=== PATIENT | female | born 1965 | race Caucasian/White ===

== ENCOUNTER 2025-02-16 16:14 | Inpatient (IN) | payer BC, SELFPAY ==
[2025-02-16] VITALS (15 sets, daily range): BP systolic 103–154; BP diastolic 52–76; BMI 31.1
--- NOTE | 2025-02-16 11:09 | ED.GENMED ---
History of Present Illness
<ALLY Goddard - Last Filed: 02/17/25 15:36>
General
Chief Complaint: Weakness
Source: patient and family
Exam Limitations: none
Time Seen by Provider: 02/16/25 10:14
Nursing documentation reviewed up to this point in time: agreed with
History of Present Illness
History of Present Illness:
Patient is a 59-year-old female with metastatic breast cancer with mets to bone kidney liver spine and brain (followed at [facility] ) presents to the ER for evaluation. Family doctor reports patient switched to new chemo 3 weeks
ago and had 2 doses. Over the last week patient is noted to have increasing weakness worse weakness in her legs and leg pain. Also over the past several days she has had increased confusion. Last night she was very confused and daughter reports
medics came however she did refuse to come to the ER. That time however her sugar was 43. She also started with low-grade fever yesterday between 100.2 and 100.4. Mild cough. Pt is awake alert aware that she was confused. Presently pt is awake
alert oriented x3. When asked patient does report a little bit of burning with urination and blood in her urine however she does have a known stent because of metastasis to her kidney.
Phy Exam
<ALLY Goddard - Last Filed: 02/17/25 15:36>
General Physical Exam
General Presentation: no apparent distress
General age: appears older than age
General Skin: warm and dry
General Habitus: normal
General Mental: alert
General Hydration: dry mucous membranes
Cardiovascular Exam
Cardiovascular Exam: regular rate/rhythm, no murmur and normal peripheral pulses
Pulmonary Exam
Pulmonary Exam: lungs clear and no respiratory distress
Neurological Exam
Neurological Exam: alert and oriented x3
Musculoskeletal Exam
Musculoskeletal Exam: full ROM
Skin Exam
Skin Exam: normal color and warm/dry
Psychiatric Exam
Psychiatric Exam: normal mood/affect
Course
<ALLY Goddard - Last Filed: 02/17/25 15:36>
Orders/Labs/Results
Orders:
Orders
02/16/25 11:03
CMP [Comprehensive Metabolic Panel] Urgent
Complete Blood Count/With Diff Urgent
Magnesium Urgent
Comment: ADD ON
Manual Differential Urgent
02/16/25 11:12
COVID-19 Antigen Urgent
Source: Nasal Swab
Lactic Acid Q4H
Comment: CANCEL 2nd LACTIC ACID IF 1st LACTIC ACID IS LESS THAN 2
Influenza A+B Rapid Molecular Urgent
PEREZ Source: Nasal Swab
Specimen Description:
02/16/25 11:17
Chest/Abd/Pelvis w Contrast CT [CT Chest/abd/pel W Iv Cont] Urgent
Comment:
Reason For Exam: fever hx of cancer /cough
02/16/25 11:19
Blood Culture Q30M
PEREZ Source: Blood/Venous
Specimen Description:
02/16/25 11:20
0.9% Sodium Chloride 1000 ml [Nss] 1,000 ml IV BOLUS
02/16/25 11:28
Urinalysis Reflex To Culture Urgent
Date Specimen was Collected: 02/16/25
Time Specimen was Collected: 11:28
Urine Microscopic Reflex Cult Urgent
Urine Culture Urgent
PEREZ Source: U
Specimen Description:
Date Specimen was Collected: 02/16/25
Time Specimen was Collected: 11:28
02/16/25 11:42
Potassium Chloride [KCl] 40 meq PO NOW STA
02/16/25 11:50
Blood Culture Q30M
PEREZ Source: Blood/Venous
Specimen Description:
02/16/25 11:53
Potassium Chloride [KCl] 40 meq 0.9% Sodium Chloride 250 ml [Nss] 250 ml IV NOW
02/16/25 13:58
Electrocardiogram (*1) Stat
Reason for Study: Other
Other Reason for Exam: chest pain
EKG- Treatment ONCE
02/16/25 14:30
Cefepime HCl [Maxipime] 2,000 mg IV NOW STA
Vancomycin [Vancocin] 2,000 mg 0.9% Sodium Chloride 500 ml [Nss] 500 ml IV NOW
02/16/25 Dinner
1800 calorie (15 carb) Diabetic
At Your Request: Full Participation
02/16/25 15:23
Oxycodone [Roxicodone] 5 mg PO NOW STA
02/16/25 15:44
Lactic Acid Q4H
Comment: CANCEL 2nd LACTIC ACID IF 1st LACTIC ACID IS LESS THAN 2
02/16/25 15:50
Admit/Transfer Patient As Directed
Co-Sign Provider:
Level of Care: Inpatient admission
Assign to:: IMU- Intermediate Care
Physician / Group: chan fuentes
Diagnosis: sepsis unclear poss gallbladder, pancytopenia/neutropenia, breast ca w/mets
Reason for Hospitalization: sepsis unclear poss gallbladder, pancytopenia/neutropenia, breast ca w/mets
Expected length of stay greater than two midnights?: Yes
ELOS- Estimated Length of Stay in days: 5
I certify the patient meets the requirements for IP care: Yes
02/16/25 15:57
PRN Pain Medication Management As Directed
May give lesser potent ordered pain med per pt: Yes
preference::
Protocol:: Medication orders for pain may be administered in a
manner that supports deferring to patient preference
when the pt is:
- Requesting an ordered lesser potent pain medication.
Least to most potent pain medications are defined
as: acetaminophen < NSAID < tramadol < opioids
(morphine, oxycodone, hydromorphone).
- Requesting a lesser dose of the same medication IF
ORDERED.
- Requesting a less intrusive route of administration
if both routes are prescribed by the provider (PO <
IV).
02/16/25 16:10
Code Status As Directed
Resuscitation Status: Full Code
02/16/25 16:13
Add On- LAB Urgent
Tests Added?: mag
02/16/25 16:35
Blood Culture Urgent
PEREZ Source: Blood/Venous
Specimen Description:
Comment: please draw culture from port
02/16/25 17:48
0.9% Sodium Chloride 1000 ml [Nss] 1,000 ml IV 80 mls/hr
Acetaminophen [Tylenol] 650 mg PO Q4HPRN PRN
Bisacodyl [Dulcolax] 10 mg RECTAL [id number] PRN
Docusate W/Senna [Senokot-S] 1 tablet PO BIDPRN PRN
Ondansetron Injectable [Zofran] 4 mg IV Q6HPRN PRN
Polyethylene Glycol Powder [Miralax] 17 grams PO DAILYPRN PRN
Trazodone [Desyrel] 50 mg PO HSPRN PRN sleep
02/16/25 17:48
Activity As Directed
Activity Level: With Assistance
Pneumatic Compression Sleeves As Directed
Type: Knee high
Precautions As Directed
Type of Precautions: Neutropenic
Other
Comment: fall
Vital Signs As Directed
Frequency: Per unit guidelines
Ot Eval And Treat Routine
Pt Eval And Treat Routine
Activity Level: With Assistance
DX Deep Vein Thrombosis Video Routine
02/16/25 18:00
Oxycodone [Roxicodone] 5 mg PO QID
02/16/25 20:00
Levetiracetam [Keppra] 500 mg PO BID
Piperacillin/Tazo 3.375 Gram [Zosyn] 3.375 gram in 50 ml IV Q6H
02/17/25 05:35
Complete Blood Count/With Diff IN AM
Comprehensive Metabolic Panel IN AM
02/17/25 06:00
Levothyroxine [Synthroid] 150 mcg PO DAILY@0600
02/17/25 08:00
Cholecalciferol (Vitamin D3) [VITAMIN D3 (cholecalciferol)] 25 mcg PO DAILY
Fluoxetine HCl [Prozac] 20 mg PO DAILY
Pyridoxine [Vitamin B-6] 100 mg PO DAILY
02/18/25 06:00
Complete Blood Count/With Diff IN AM
Comprehensive Metabolic Panel IN AM
02/19/25 06:00
Complete Blood Count/With Diff IN AM
Comprehensive Metabolic Panel IN AM
02/20/25 06:00
Complete Blood Count/With Diff IN AM
Comprehensive Metabolic Panel IN AM
02/21/25 06:00
Complete Blood Count/With Diff IN AM
Comprehensive Metabolic Panel IN AM
Abnormal Lab Results
02/16/25 02/16/25 02/16/25
11:03 11:12 11:28
WBC 2.0 L* 10^3/uL
(4.8-10.8)
RBC 2.53 L 10^6/uL
(4.20-5.40)
Hgb 7.6 L g/dL
(12.0-16.0)
Hct 22.5 L %
(37.0-47.0)
RDW 16.4 H %
(11.5-14.5)
Plt Count 79 L 10^3/uL
(130-400)
Abs Neuts (Manual) 0.6 L* 10^3/uL
(1.4-6.5)
Segmented Neutrophils 29 L %
(42-75)
Band Neutrophils 4 H %
(0-3)
Monocytes (Manual) 20 H %
(2-9)
Sodium 134 L mmol/L
(135-145)
Potassium 2.8 L mmol/L
(3.5-5.1)
Glucose 161 H mg/dl
(70-99)
Lactic Acid 2.3 H mmol/L
(0.7-2.0)
Total Bilirubin 1.7 H mg/dl
(0.2-1.3)
AST 175 H U/L
(14-36)
ALT 63 H U/L
(0-35)
Alkaline Phosphatase 321 H U/L
(38-126)
Total Protein 5.4 L g/dl
(6.3-8.2)
Albumin 2.9 L g/dl
(3.5-5.0)
Ur Occult Blood Reflex 4+ A
(Negative)
Urine Urobilinogen 2+ A
(Neg - 1+)
Leukocyte Esterase Rfl 1+ A
(Negative)
Urine RBC 80-90 A /HPF
(0-2)
Urine Bacteria (Reflex) Few A
(Negative)
Urine Albumin (Reflex) 2+ A
(Neg - Trace)
02/16/25 11:03
02/16/25 11:03
Vital Signs
Initial and Last Documented VS:
Initial Vital Signs
Pulse Resp BP Pulse Ox
90 21 105/76 96
02/16/25 10:10 02/16/25 10:10 02/16/25 10:10 02/16/25 10:10
Last Documented Vital Signs
Temp Pulse Resp BP Pulse Ox
98.4 F 88 22 107/57 96
02/17/25 12:00 02/17/25 12:00 02/17/25 12:00 02/17/25 12:00 02/17/25 09:28
Saddle Stitcher consulted with Physician
Saddle Stitcher consulted with physician?: Yes (Barenbaum )
<Nissa Mcmahon MD - Last Filed: 02/16/25 16:32>
Orders/Labs/Results
Orders:
Orders
02/16/25 11:03
CMP [Comprehensive Metabolic Panel] Urgent
Complete Blood Count/With Diff Urgent
Magnesium Urgent
Comment: ADD ON
Manual Differential Urgent
02/16/25 11:12
COVID-19 Antigen Urgent
Source: Nasal Swab
Lactic Acid Q4H
Comment: CANCEL 2nd LACTIC ACID IF 1st LACTIC ACID IS LESS THAN 2
Influenza A+B Rapid Molecular Urgent
EPREZ Source: Nasal Swab
Specimen Description:
02/16/25 11:17
Chest/Abd/Pelvis w Contrast CT [CT Chest/abd/pel W Iv Cont] Urgent
Comment:
Reason For Exam: fever hx of cancer /cough
02/16/25 11:19
Blood Culture Q30M
PEREZ Source: Blood/Venous
Specimen Description:
02/16/25 11:20
0.9% Sodium Chloride 1000 ml [Nss] 1,000 ml IV BOLUS
02/16/25 11:28
Urinalysis Reflex To Culture Urgent
Date Specimen was Collected: 02/16/25
Time Specimen was Collected: 11:28
Urine Microscopic Reflex Cult Urgent
Urine Culture Urgent
PEREZ Source: U
Specimen Description:
Date Specimen was Collected: 02/16/25
Time Specimen was Collected: 11:28
02/16/25 11:42
Potassium Chloride [KCl] 40 meq PO NOW STA
02/16/25 11:50
Blood Culture Q30M
PEREZ Source: Blood/Venous
Specimen Description:
02/16/25 11:53
Potassium Chloride [KCl] 40 meq 0.9% Sodium Chloride 250 ml [Nss] 250 ml IV NOW
02/16/25 13:58
Electrocardiogram (*1) Stat
Reason for Study: Other
Other Reason for Exam: chest pain
EKG- Treatment ONCE
02/16/25 14:30
Cefepime HCl [Maxipime] 2,000 mg IV NOW STA
Vancomycin [Vancocin] 2,000 mg 0.9% Sodium Chloride 500 ml [Nss] 500 ml IV NOW
02/16/25 Dinner
1800 calorie (15 carb) Diabetic
At Your Request: Full Participation
02/16/25 15:23
Oxycodone [Roxicodone] 5 mg PO NOW STA
02/16/25 15:44
Lactic Acid Q4H
Comment: CANCEL 2nd LACTIC ACID IF 1st LACTIC ACID IS LESS THAN 2
02/16/25 15:50
Admit/Transfer Patient As Directed
Co-Sign Provider:
Level of Care: Inpatient admission
Assign to:: IMU- Intermediate Care
Physician / Group: chan fuentes
Diagnosis: sepsis unclear poss gallbladder, pancytopenia/neutropenia, breast ca w/mets
Reason for Hospitalization: sepsis unclear poss gallbladder, pancytopenia/neutropenia, breast ca w/mets
Expected length of stay greater than two midnights?: Yes
ELOS- Estimated Length of Stay in days: 5
I certify the patient meets the requirements for IP care: Yes
02/16/25 15:57
PRN Pain Medication Management As Directed
May give lesser potent ordered pain med per pt: Yes
preference::
Protocol:: Medication orders for pain may be administered in a
manner that supports deferring to patient preference
when the pt is:
- Requesting an ordered lesser potent pain medication.
Least to most potent pain medications are defined
as: acetaminophen < NSAID < tramadol < opioids
(morphine, oxycodone, hydromorphone).
- Requesting a lesser dose of the same medication IF
ORDERED.
- Requesting a less intrusive route of administration
if both routes are prescribed by the provider (PO <
IV).
02/16/25 16:10
Code Status As Directed
Resuscitation Status: Full Code
02/16/25 16:13
Add On- LAB Urgent
Tests Added?: mag
02/16/25 16:35
Blood Culture Urgent
PEREZ Source: Blood/Venous
Specimen Description:
Comment: please draw culture from port
02/16/25 17:48
0.9% Sodium Chloride 1000 ml [Nss] 1,000 ml IV 80 mls/hr
Acetaminophen [Tylenol] 650 mg PO Q4HPRN PRN
Bisacodyl [Dulcolax] 10 mg RECTAL [id number] PRN
Docusate W/Senna [Senokot-S] 1 tablet PO BIDPRN PRN
Ondansetron Injectable [Zofran] 4 mg IV Q6HPRN PRN
Polyethylene Glycol Powder [Miralax] 17 grams PO DAILYPRN PRN
Trazodone [Desyrel] 50 mg PO HSPRN PRN sleep
02/16/25 17:48
Activity As Directed
Activity Level: With Assistance
Pneumatic Compression Sleeves As Directed
Type: Knee high
Precautions As Directed
Type of Precautions: Neutropenic
Other
Comment: fall
Vital Signs As Directed
Frequency: Per unit guidelines
Ot Eval And Treat Routine
Pt Eval And Treat Routine
Activity Level: With Assistance
DX Deep Vein Thrombosis Video Routine
02/16/25 18:00
Oxycodone [Roxicodone] 5 mg PO QID
02/16/25 20:00
Levetiracetam [Keppra] 500 mg PO BID
Piperacillin/Tazo 3.375 Gram [Zosyn] 3.375 gram in 50 ml IV Q6H
02/17/25 05:35
Complete Blood Count/With Diff IN AM
Comprehensive Metabolic Panel IN AM
02/17/25 06:00
Levothyroxine [Synthroid] 150 mcg PO DAILY@0600
02/17/25 08:00
Cholecalciferol (Vitamin D3) [VITAMIN D3 (cholecalciferol)] 25 mcg PO DAILY
Fluoxetine HCl [Prozac] 20 mg PO DAILY
Pyridoxine [Vitamin B-6] 100 mg PO DAILY
02/18/25 06:00
Complete Blood Count/With Diff IN AM
Comprehensive Metabolic Panel IN AM
02/19/25 06:00
Complete Blood Count/With Diff IN AM
Comprehensive Metabolic Panel IN AM
02/20/25 06:00
Complete Blood Count/With Diff IN AM
Comprehensive Metabolic Panel IN AM
02/21/25 06:00
Complete Blood Count/With Diff IN AM
Comprehensive Metabolic Panel IN AM
Abnormal Lab Results
02/16/25 02/16/25 02/16/25
11:03 11:12 11:28
WBC 2.0 L* 10^3/uL
(4.8-10.8)
RBC 2.53 L 10^6/uL
(4.20-5.40)
Hgb 7.6 L g/dL
(12.0-16.0)
Hct 22.5 L %
(37.0-47.0)
RDW 16.4 H %
(11.5-14.5)
Plt Count 79 L 10^3/uL
(130-400)
Abs Neuts (Manual) 0.6 L* 10^3/uL
(1.4-6.5)
Segmented Neutrophils 29 L %
(42-75)
Band Neutrophils 4 H %
(0-3)
Monocytes (Manual) 20 H %
(2-9)
Sodium 134 L mmol/L
(135-145)
Potassium 2.8 L mmol/L
(3.5-5.1)
Glucose 161 H mg/dl
(70-99)
Lactic Acid 2.3 H mmol/L
(0.7-2.0)
Total Bilirubin 1.7 H mg/dl
(0.2-1.3)
AST 175 H U/L
(14-36)
ALT 63 H U/L
(0-35)
Alkaline Phosphatase 321 H U/L
(38-126)
Total Protein 5.4 L g/dl
(6.3-8.2)
Albumin 2.9 L g/dl
(3.5-5.0)
Ur Occult Blood Reflex 4+ A
(Negative)
Urine Urobilinogen 2+ A
(Neg - 1+)
Leukocyte Esterase Rfl 1+ A
(Negative)
Urine RBC 80-90 A /HPF
(0-2)
Urine Bacteria (Reflex) Few A
(Negative)
Urine Albumin (Reflex) 2+ A
(Neg - Trace)
02/16/25 11:03
02/16/25 11:03
Vital Signs
Initial and Last Documented VS:
Initial Vital Signs
Pulse Resp BP Pulse Ox
90 21 105/76 96
02/16/25 10:10 02/16/25 10:10 02/16/25 10:10 02/16/25 10:10
Last Documented Vital Signs
Temp Pulse Resp BP Pulse Ox
98.4 F 88 22 107/57 96
02/17/25 12:00 02/17/25 12:00 02/17/25 12:00 02/17/25 12:00 02/17/25 09:28
<ALLY Goddard - Last Filed: 02/17/25 15:36>
MDM/Problems Addressed
Differential Diagnosis Includes:
Not limited to neutropenic fever, pneumonia, UTI, dehydration electrolyte abnormality
MDM/Problems Addressed:
As documented patient is a 59-year-old female with metastatic breast cancer followed at [facility] presents for increasing confusion weakness/leg weakness. She presents awake alert oriented here. She also was noted to have a low-grade fever by family
yesterday. Patient is afebrile here with pancytopenia. UA large blood known stent in place ( left ureter ) right no acute findings on CAT scan. With reports of low-grade fever pancytopenia absolute neutrophils 600 and will cover with vancomycin
/cefipime.
Chronic conditions affecting care:
Metastatic breast cancer on chemotherapy
<ALLY Goddard - Last Filed: 02/17/25 15:36>
*Radiology
Radiology exam reviewed: radiology read reviewed
*Pulse Oximetry
SaO2: 97
Oxygen Mode of Delivery: Room air
Patient hypoxic: no
*Critical Care Note
Total Time (30-74mins, 75-104mins- exclusive of procedures): Not Applicable
ED Attending Note
<ALLY Goddard - Last Filed: 02/17/25 15:36>
-
Portions of this chart may have been created with voice recognition software.� Occasional wrong word or��sound alike� substitutions may have occurred due to the inherent limitations of voice recognition software.
<Nissa Mcmahon MD - Last Filed: 02/16/25 16:32>
ED Attending Note
Patient seen and examined by attending physician: Yes
I performed the substantive portion of visit, reviewed & personally made and approve the management plan that is documented in note by myself or DONTRELL.: Yes
ED Attending Note:
Patient appears nontoxic. Heart sounds regular. Lungs are clear. Given patient reports fever yesterday and is neutropenic, she will be admitted for IV fluids and to watch her cultures.
Discharge Plan
Departure
Patient Disposition: Admit
Date of Disposition: 02/16/25
Time of Disposition: 14:36
Admit to: Med/Surg
Admit to doctor: hospitalist
Presentation/result/management discussed w/ accepting MD/DO: Hospitalist
Patient with high blood pressure during this ER visit?: Yes
Condition: Fair
Covid-19: Not Applicable
Discharge Problem:
Weakness, Fever and neutropenia, Acute hypokalemia
Interventions
Interventions:
*Risk Screen - Suicide Last Done: 02/16/25 18:06
*General Assessment Last Done: 02/16/25 10:19
*Neglect/Abuse Screening Last Done: 02/16/25 10:19
*ED- Fall Risk Assessment Last Done: 02/16/25 10:19
*ED COVID-19 Vaccine History Last Done: 02/16/25 10:19
*Nursing Disposition Last Done: 02/16/25 17:40
ED- Cardiac Assessment Last Done: 02/16/25 10:20
ED- Neurological Assessment Last Done: 02/16/25 10:20
ED- Pulmonary Assessment Last Done: 02/16/25 10:20
ED Swallowing Screen Last Done: 02/16/25 15:15
Discharge Date and Time
Discharge Date/Time: 02/16/25 17:40
[2025-02-16 11:23] LABS: ALT (SGPT) 63 U/L (0-35); AST (SGOT) 175 U/L (14-36); Albumin 2.9 g/dl (3.5-5.0); Alkaline Phosphatase 321 U/L (38-126); Blood Urea Nitrogen 14 mg/dl (7-17); Calcium 8.9 mg/dl (8.4-10.2); Carbon Dioxide 30 mmol/L (22-30); Chloride 102 mmol/L (98-107); Estimated Creatinine Clearance 89 ml/min; Glucose 161 mg/dl (70-99); Potassium 2.8 mmol/L (3.5-5.1); Sodium 134 mmol/L (135-145); Total Protein 5.4 g/dl (6.3-8.2); eGFR > 60.00
[2025-02-16 11:35] LABS: COVID-19 Antigen Negative (Negative)
[2025-02-16] MEDS: NSS 1000 IV ×2 (11:35→18:16)
[2025-02-16 11:36] LABS: Hematocrit 22.5 % (37.0-47.0); Hemoglobin 7.6 g/dL (12.0-16.0); Mean Corp Hgb Conc. 33.8 g/dL (33.0-37.0); Mean Corpuscular Volume 88.9 fL (81.0-99.0); Platelet Count 79 10^3/uL (130-400); Red Cell Dist. Width 16.4 % (11.5-14.5)
[2025-02-16 11:43] LABS: Urine Character Slightly Cloudy (Clear)
[2025-02-16] MEDS: KCL 40 MEQ PO (11:56)
[2025-02-16] MEDS: KCL 270 MEQ IV (12:09)
--- NOTE | 2025-02-16 12:11 | EDRN ---
IV KCL @ 60 ml/hr to avoid vein irritation
[2025-02-16 12:21] LABS: Normal RBC Morphology No; Platelets Checked Yes
[2025-02-16 12:22] LABS: Anisocytosis 1+; Polychromasia 1+
[2025-02-16 12:23] LABS: Acanthocytes FEW; Ovalocytes 1+; Schistocytes FEW
[2025-02-16 12:23] LABS: Urine Red Blood Cell 80-90 /HPF (0-2)
[2025-02-16 12:24] LABS: Total Cells Counted 100
[2025-02-16 12:26] LABS: Absolute Neutrophils -Man Diff 0.6 10^3/uL (1.4-6.5)
--- NOTE | 2025-02-16 15:01 | HPS.HSE ---
Family Physician
-
Family Physician: Jo Olvera
Chief Complaint
-
Increased weakness to legs, fever, confusion
History of Present Illness
59-year-old female who states over the past week has had increased weakness worse in legs along with leg pains and increased confusion. According to her daughter she was very confused last night medics were called she did refuse to come to the ER
however her sugar was 43 at that time. She also started with low-grade fever 100.2�100.4 yesterday and mild cough. She reports slight dysuria with urination however has ureteral stent due to known mets to her kidney that was placed in December. She
follows at [facility] oncology for metastatic breast cancer with mets to bone pelvis, spine then liver 2022 then brain 06/10/2024 then left kidney December 2024. Patient initially was diagnosed with invasive ductal carcinoma of the
right breast 10/03/2020 she reports she was diagnosed with another type of breast cancer and had lumpectomy on the left side she is unsure what type. She had a nosebleed 5 days ago was treated at [facility] ER that self resolved. She reports
bilateral mild abdominal pain not specific to right upper quadrant. She started new chemotherapy 3 weeks ago and has had 2 doses with last infusion of Rubilin on 02/09/2025. Other past medical history includes hypertension, DM 2, hypothyroidism,
brain mets with seizures
Medical History
Past Medical History
Past Medical History: Reports Other
Additional Past Medical History:
metastatic breast cancer with mets to bone pelvis, spine then liver 2022 then brain 06/10/2024 then left kidney December 2024.
invasive ductal carcinoma of the right breast 10/03/2020 she reports she was diagnosed with another type of breast cancer and had lumpectomy on the left side she is unsure what type.
hypertension
DM 2
hypothyroidism
brain mets with seizures
Past Surgical History: Reports Other
Additional Past Surgical History:
Left lumpectomy
Port right upper chest wall
Social History
Tobacco: Non-smoker
Alcohol: None
Drug: None
Living: With Family
Employment: Disabled
Family History
Family History: Not pertinent
Allergies / Home Medications
Allergies reflects when Allergies were last updated in [employer].
Home Medications with original date entered in [employer]
Allergy/Medication List:
Allergies
Allergy/AdvReac Type Severity Reaction Status Date / Time
No Known Allergies Allergy Unverified 02/16/25 10:17
Home Medications
ascorbic acid (vitamin C) 500 mg chewable tablet (Vitamin C) 500 mg PO DAILY 02/16/25
cholecalciferol (vitamin D3) 25 mcg (1,000 unit) tablet (Vitamin D3) 25 mcg PO DAILY 02/16/25
fluoxetine 20 mg capsule (Prozac) 20 mg PO DAILY 02/16/25
hydrochlorothiazide 12.5 mg tablet 12.5 mg PO DAILY 02/16/25
levetiracetam 500 mg tablet 500 mg PO BID 02/16/25
levothyroxine 150 mcg tablet (Synthroid) 150 mcg PO DAILY 02/16/25
oxycodone 5 mg tablet 5 mg PO QID 02/16/25
pyridoxine (vitamin B6) 100 mg tablet 100 mg PO DAILY 02/16/25
trazodone 50 mg tablet 50 mg PO HSPRN PRN sleep 02/16/25
Review of Systems
-
History Source: Patient and Family (Daughter and family at bedside)
A 12 point ROS was completed and negative except as noted: Yes
Constitutional: Reports Fever and Other (Confusion)
EENT: Denies Sore Throat or Runny Nose
Respiratory: Denies Cough or Trouble Breathing
Cardiac: Denies Chest Pain, Diaphoresis, Palpitations or Syncope
Abdomen/GI: Reports Abdominal Pain (Nonspecific left and right side abdomen); Denies Nausea, Vomiting, Diarrhea, Constipated, Bloody Stools or Black Stools
: Reports Dysuria (But has current ureteral stent due to metastatic CA to ureter); Denies Flank Pain, Incontinence or Difficulty Voiding
Musculoskeletal: Denies Joint Pain or Edema
Skin: Denies Itching or Rash
Neurological: Reports Weakness (Bilateral lower legs); Denies Dizzy or Headache
Endocrine: Reports No Symptoms
Hematologic/Lymphatic: Reports Bleeding (Recent epistaxis 5 days ago)
Psych: Reports Calm
Physical Exam
Vital Signs
Vital Signs
Temp Pulse Resp BP Pulse Ox
98.6 F 92 19 129/55 97
02/16/25 10:14 02/16/25 13:34 02/16/25 13:34 02/16/25 13:34 02/16/25 13:32
Physical Exam
General: Comfortable, Conversant, Pain and Chills; No Fever
HEENT: NormoCephalic, Moist mucous membranes, PERRLA, Filer Conjunctivae, No Ptosis and Other (Pale conjunctiva)
Respiratory: Clear; No Wheezes, Rales or Rhonchi
Cardiac: S1/S2 and Regular Rhythm; No Murmur, Rub, Gallop or Peripheral Edema
Breast: Deferred by me
GI: Soft, Non Distended, Normal Bowel Sounds, Tender (Nonspecific left and right side) and No Hepatosplenomegaly
Rectal: Deferred by Provider
Genito-urinary: Deferred by me
Musculoskeletal: No Clubbing, No Cyanosis and No Edema
Skin: Warm, Dry and IV/Catheter Site (Left upper chest wall port site intact no surrounding erythema or rash); No Rash or Jaundice
Neuro: AO x 3, No Motor Deficits, Nonfocal/grossly intact, Cranial Nerves Intact and No Sensory Deficits; No Slurred Speech, Facial Droop, Tremors or Sedated
Psych: Calm
Laboratory Results
-
02/16/25 11:03
02/16/25 11:03
Laboratory Results
Lactic Acid 2.3 mmol/L (0.7-2.0) H 02/16/25 11:12
Total Bilirubin 1.7 mg/dl (0.2-1.3) H 02/16/25 11:03
AST 175 U/L (14-36) H 02/16/25 11:03
ALT 63 U/L (0-35) H 02/16/25 11:03
Alkaline Phosphatase 321 U/L (38-126) H 02/16/25 11:03
Data Reviewed
-
CT Scan: Report Reviewed by me
Lab Data: Labs Reviewed by me
Impression/Plan
-
Impression/plan:
Admit to telemetry
#Sepsis of unclear etiology possible gallbladder given pericholecystic fluid
#Acute pancytopenia/bandemia secondary to chemotherapy for metastatic breast cancer
#Splenomegaly
WBC 2, absolute neuts 0.6, Hgb 7.6, PLT 79
Bands 4%
- Blood cultures x 2, lactic acid 2.3 will follow
- Type and screen, blood consent obtained and scanned to chart
-Transfuse 1 unit PRBC
- IV cefepime, IV vancomycin given in ER will continue IV vancomycin IV Zosyn pending abdominal ultrasound
- IV NSS 1 L given in ER
- Ultrasound abdomen
CT chest abdomen pelvis with IV contrast:
1. No acute findings in the chest.
2. Cholelithiasis with small volume pericholecystic free fluid which is nonspecific and may be secondary to liver disease, however consider dedicated right upper quadrant ultrasound for further evaluation.
3. Numerous hypodense lesions within the liver which are likely metastasis in the setting of known breast cancer.
4. Splenomegaly.
5. Left-sided double-J ureteral stent with persistent mild left-sided hydronephrosis.
6. Extensive lytic and sclerotic appearance of the bones likely secondary to widespread osseous metastatic disease.
#Transaminitis due to metastatic breast CA to liver
T. bili 1.7, AST 175, ALT 63, alk phos 321
- Follow CMP
#Acute hypokalemia
K2.8
KCl 40 mEq p.o., IV K rider 40 mEq
Follow BMP
- Hold HCTZ 12.5 mg daily
#Left-sided double J ureteral stent mild hydro
Urinalysis +1 leukocytes few bacteria
- Follow urine culture
#Metastatic breast cancer with mets to bone pelvis, spine then liver 2022 then Brain 06/10/2024 then left kidney December 2024 on current chemotherapy
#Patient initially was diagnosed with invasive ductal carcinoma of the right breast 10/03/2020
-chemotherapy 3 weeks ago and has had 2 doses with last infusion of Rubilin on 02/09/2025.
- Port left upper chest wall
#Metastatic brain CA with history of seizures Dx May 2024
- Continue Keppra 500 mg p.o. twice daily
#Chronic pain due to metastatic breast cancer on chronic oral opiates
-Continue oxycodone 5 mg 4 times daily with bowel regimen
#Hypothyroidism
-Continue Synthroid 150 mcg p.o. daily
#Depression
-Continue Prozac 20 mg daily
#Insomnia
-Continue trazodone 50 mg at bedtime
DVT prophylaxis
SCDs current plt 79
Full code
[2025-02-16] MEDS: MAXIPIME 2000 MG IV (15:24)
[2025-02-16] MEDS: VANCOCIN 540 MG IV (15:28)
[2025-02-16] MEDS: ROXICODONE 5 MG PO ×2 (15:36→22:18)
--- NOTE | 2025-02-16 16:18 | W.PN.UPDATE ---
Update Note
Progress Note Update
This is an addendum to the H&P written by Ashley Mckinney on 02/16/2025. �Patient seen and examined independently with [employer].
59-year-old female past medical history of metastatic breast cancer follows at [facility] metastasis to spine, liver, brain complicated by seizures,, metastases to left ureter status post stent in December, on chemotherapy started 3 weeks ago presenting for
low-grade fever, confusion nonspecific abdominal discomfort.
Epistaxis 1 week ago did not require packing.
Vital signs normal.
Labs show pancytopenia white cell count of 2, hemoglobin 7.6, platelets of 79. �Sodium of 134, potassium 2.8, lactic acid 2.3. �Transaminitis.
CT chest abdomen pelvis shows no acute findings in the chest. �Cholelithiasis with small volume pericholecystic fluid which may be secondary to liver disease. �Few hypodense lesions within the liver likely metastases. �Splenomegaly. �Left-sided
double-J ureteral stent with mild left-sided hydronephrosis.
Urinalysis unremarkable.
Patient with sepsis unclear source. �Could be related to biliary or gallbladder source. �Does not seem to be urinary in nature. �Could be bacteremia. �Does not seem to be related to the port. �Check blood cultures. �Check blood culture from port as
well. �IV fluids. �Vancomycin/Zosyn. �Check abdominal ultrasound.
Patient with pancytopenia secondary to chemotherapy. �1 unit blood transfusion.
Hypokalemia secondary to HCTZ. �Replete potassium. �Check magnesium.
--- NOTE | 2025-02-16 16:32 | CM ---
Addendum entered by Tash Macdonald 02/16/25 16:38:
First floor half BA, full flight to second floor BR/full BA
Original Note:
CM reviewed chart and met with pt and family bedside in ED. Lives with her , 2 story home, 2 JIE.
Independent in ADLs and personal care, recently obtained walker and wheelchair, using as needed.
No hx VN/SNF.
PCP: Jo Olvera
Pharmacy: [facility] [address]
Anticipate discharge home, watch for needs. CM will continue to follow.
[2025-02-16 16:46] LABS: Magnesium 1.6 mg/dl (1.6-2.3)
[2025-02-16] MEDS: BENADRYL 25 MG IV (16:59)
[2025-02-16] MEDS: FLUSH (NSS) 1 FLUSH IV (17:04)
[2025-02-16] MEDS: ROXICODONE PO (18:09)
--- NOTE | 2025-02-16 18:09 | PHA.VAN.IN ---
Addendum entered and electronically signed by Crista Price [facility] 02/16/25 20:18:
Per DIAGNOSTIC RADIOLOGIC TECHNOLOGIST, pt experienced red itchy rash on face during vancomycin infusion. Rate of infusion of vanc 1000mg was adjusted by DIAGNOSTIC RADIOLOGIC TECHNOLOGIST to be administered over 2 hours instead of 1 hour.
Original Note:
Assessment
- Assessment
Renal Function: Unknown baseline
Concomitant Antimicrobials: piperacillin/tazobactam
AUC Dosing Plan
- Dosing Variables
Dosing Weight (kg): 79.5
Dosing CrCl (ml/min): 89
Vd coefficient (L/kg): 0.7
- Empiric Dosing
Initial / Loading Dose: vanc 2000mg administered @ 1528
Maintenance Regimen: vanc 1000mg Q12H
Estimated AUC (mcg*h/mL): 477
Estimated Peak (mcg*h/mL): 29.5
Estimated Trough (mcg/ml): 12.5
Estimated Half Life (H): 8.9
- Monitoring
No levels ordered at this time: consider levels in next few days
Pharmacokinetics Vancomycin I
- -
Patient Age: 59
Patient Sex: Female
Vancomycin Day #: 1
Indication: Bacteremia
Requesting Provider: Ashley Mckinney
Pertinent Antimicrobial Allergies:
no pertinent antimicrobial allergies
Height / Weight:
Height 5 ft 3 in
Actual Weight 79.5 kg
Pertinent Past Medical History: breast cancer with mets to bone, pelvis, kidney, liver, spine, brain
- Vital Signs / Lab Results
Temp Pulse Resp BP Pulse Ox
97.8 F 93 23 154/60 96
02/16/25 17:50 02/16/25 17:15 02/16/25 17:15 02/16/25 15:40 02/16/25 15:45
Lab Results - Hematology
02/16/25
11:03
WBC 2.0 L*
Band Neutrophils 4 H
Lab Results - Chemistry
02/16/25
11:03
BUN 14
Creatinine 0.7
Estimated Creat Clear 89
Albumin 2.9 L
02/16/25 02/16/25
11:12 15:44
Lactic Acid 2.3 H 1.9
Lab Results - Urine
02/16/25
11:28
Urine Nitrite (Reflex) Negative
Leukocyte Esterase Rfl 1+ A
Urine WBC (Reflex) 6-10
Ur Squamous Epith Cells 3-5
Urine Bacteria (Reflex) Few A
Microbiology Results
02/16/25 11:12 Influenza Types A & B (ARELY) - Final
Nasal Swab Negative for Influenza A & B, NAAT
Negative results must be combined with clinical observations
and patient history.
Nucleic Acid Amplification test (NAAT)performed on the
[employer] platform.
--- NOTE | 2025-02-16 19:30 | PTCARENOTE ---
Patient received into room 3353 approx 1800. Patient appears confused, unable to remember which side she had surgery on for her limb restriction. Daughter Jaja at bedside and confirmed. Other family in room. She is in SR on monitor, VSS. Lungs
clear, on RA. Family reports she has been using a RW for ambulation with 1 or 2 people assisting and they are getting a wheelchair for her. Jaja also reports that she is supposed to have a Brain MRI in a couple weeks and her hearing has
decreased and maybe could be a source of infection. Pt denies any pain to her hears and they have no noticed any drainage or discharge from her ears. Assessment and care as documented.
[2025-02-16] MEDS: KEPPRA 500 MG PO (20:12)
[2025-02-16] MEDS: ZOSYN 50 IV (20:12)
[2025-02-16] MEDS: TYLENOL 650 MG PO (23:17)
[2025-02-16] MEDS: DESYREL 50 MG PO (23:17)
[2025-02-17] VITALS (18 sets, daily range): BP systolic 97–134; BP diastolic 51–85; PULSE 83; O2SAT 97
[2025-02-17] MEDS: ZOSYN 50 IV ×4 (01:04→21:15)
--- NOTE | 2025-02-17 03:19 | PTCARENOTE ---
Assumed care for patient overnight. Pt AAOx3, confused at times, forgetful. Sons at the bedside at change of shift. Transfused 1 unit PRBCs. Pt did not receive full dose of Vanco due to red itchy rash. ALLY Stephens made aware and ordered Benadryl
to administer prior to 0600 dose and a slower rate. NSR on the monitor HR 85. Received pt on room air, while sleeping pt dropped to SpO2 85% on room air. ALLY Stephens made aware, placed pt on 2L NC while sleeping. VSS. IVF cont. Pt experiencing
difficulty urinating using the bed bear, required 2 person assist up to the BSC. Pt generalized weakness with unsteady gait. Assessment and care as documented. Call moran within reach.
[2025-02-17] MEDS: BENADRYL 25 MG IV (05:37)
[2025-02-17] MEDS: VANCOCIN 200 IV (06:00)
[2025-02-17 06:13] LABS: Hematocrit 23.9 % (37.0-47.0); Hemoglobin 8.1 g/dL (12.0-16.0); Mean Corp Hgb Conc. 33.9 g/dL (33.0-37.0); Mean Corpuscular Volume 89.5 fL (81.0-99.0); Platelet Count 73 10^3/uL (130-400); Red Cell Dist. Width 16.4 % (11.5-14.5)
[2025-02-17 06:22] LABS: ALT (SGPT) 57 U/L (0-35); AST (SGOT) 160 U/L (14-36); Albumin 2.8 g/dl (3.5-5.0); Alkaline Phosphatase 320 U/L (38-126); Blood Urea Nitrogen 10 mg/dl (7-17); Calcium 8.8 mg/dl (8.4-10.2); Carbon Dioxide 26 mmol/L (22-30); Chloride 108 mmol/L (98-107); Estimated Creatinine Clearance 77 ml/min; Glucose 95 mg/dl (70-99); Potassium 3.6 mmol/L (3.5-5.1); Sodium 138 mmol/L (135-145); Total Protein 5.0 g/dl (6.3-8.2); eGFR > 60.00
--- NOTE | 2025-02-17 06:38 | PTCARENOTE ---
IV Benadryl administered see SEP. IV Erin contreras. Pt asymptomatic.
[2025-02-17] MEDS: SYNTHROID 150 MCG PO (06:51)
[2025-02-17 07:37] LABS: Anisocytosis 1+; Hypochromasia 1+; Normal RBC Morphology No; Platelets Checked Yes; Polychromasia 1+
[2025-02-17 07:38] LABS: Ovalocytes FEW; Total Cells Counted 100
[2025-02-17 07:40] LABS: Absolute Neutrophils -Man Diff 0.7 10^3/uL (1.4-6.5)
--- NOTE | 2025-02-17 08:37 | PHA.VAN.FU ---
Vancomycin Assessment / Plan
- Assessment
Renal Function: Stable
WBC's are: Stable
Neutropenia: ANC = 700
In the past 24 hrs, patient has been: Afebrile
Concomitant Antimicrobials: piperacillin/tazobactam
- Dosing Plan
Continue: Vanc 1000mg Q12H infused over 2 hours
- Monitoring Plan
No level(s) ordered at this time: consider levels in next few days
- Follow Up
Pharmacy will continue to follow.
Vancomycin Follow UP
- -
Patient Age: 59
Patient Sex: Female
Vancomycin Day #: 2
Indication: Bacteremia
Requesting Provider: Ashley Mckinney
Pertinent Antimicrobial Allergies:
vancomycin - infusion reaction
Height / Weight:
Height 5 ft 3 in
Actual Weight 79.5 kg
Pertinent Past Medical History: metastatic breast cancer
- Vital Signs / Lab Results
Temp Pulse Resp BP Pulse Ox
97.9 F 82 22 116/66 97
02/17/25 03:08 02/17/25 06:00 02/17/25 06:00 02/17/25 06:00 02/17/25 03:18
Lab Results - Hematology
02/16/25 02/17/25
11:03 05:35
WBC 2.0 L* 1.9 L*
Band Neutrophils 4 H 5 H
Lab Results - Chemistry
02/16/25 02/17/25
11:03 05:35
BUN 14 10
Creatinine 0.7 0.8
Estimated Creat Clear 89 77
Albumin 2.9 L 2.8 L
02/16/25 02/16/25
11:12 15:44
Lactic Acid 2.3 H 1.9
Lab Results - Urine
02/16/25
11:28
Urine Nitrite (Reflex) Negative
Leukocyte Esterase Rfl 1+ A
Ur Squamous Epith Cells 3-5
Microbiology Results
02/16/25 11:12 Influenza Types A & B (ARELY) - Final
Nasal Swab Negative for Influenza A & B, NAAT
Negative results must be combined with clinical observations
and patient history.
Nucleic Acid Amplification test (NAAT)performed on the
[employer] platform.
[2025-02-17] MEDS: KEPPRA 500 MG PO ×2 (09:10→21:15)
[2025-02-17] MEDS: VITAMIN B-6 100 MG PO (09:10)
[2025-02-17] MEDS: ROXICODONE 5 MG PO ×3 (09:10→21:16)
[2025-02-17] MEDS: VITAMIN D3 (cholecalciferol) 25 MCG PO (09:10)
[2025-02-17] MEDS: NSS 1000 IV (09:11)
[2025-02-17] MEDS: PROZAC 20 MG PO (09:11)
--- NOTE | 2025-02-17 09:24 | PTCARENOTE ---
Patient to and from ultrasound early this morning, returned shortly after 0900. Pt has no complaints, states she feels slightly better than yesterday. She is aaox3 but needed some coaching with the year. Conversation is still confused at times. She
was able to use BSC with 1 RN. Took pills whole with water. Breakfast ordered. Assessment, care and VS as charted.
--- NOTE | 2025-02-17 10:24 | W.PN.HOSP.TC ---
Addendum entered and electronically signed by Miri Breaux MD 02/17/25 16:48:
d/w MRI findings with family and her [facility] oncologist Dr. Natalie Casillas ([phone]).
Family interested in hospice care. Consult placed.
Original Note:
Today's Communication/Plan
-
see outlined plan below
Assessment / Plan
Assessment / Plan
Assessment:
Severe sepsis POA (tachycardia, leukopenia, lactic acidosis) - source yet unidentified
- continue sepsis protocol IVF - lactate improving
- continue Cefepime, day 1
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 Prn Benadryl added
- follow cultures (blood cultures, port culture, urine cultures)
- CT imaging with possible small volume pericholecystic free fluid. F/u US abdomen with no ultrasound evidence for gallbladder wall thickening or pericholecystic edema. The patient has a negative sonographic Johns's sign.
- Infectious disease consult
Acute Pancytopenia - suspect malignancy or chemotherapy related
- follow daily CBC
- neutropenic precautions
- s/p 1 unit PRBC
- Heme/Onc consult
Transaminitis likely secondary to hypotension, possible sepsis, recent chemotherapy, known liver mets from cancer
- CT imaging with possible small volume pericholecystic free fluid. F/u US abdomen with no ultrasound evidence for gallbladder wall thickening or pericholecystic edema. The patient has a negative sonographic Johns's sign. Numerous hypodense lesions
within the liver which are likely metastasis in the setting of known breast cancer
- follow LFTs
Splenomegaly
Acute hypokalemia
- hold HCTZ
- replete K to >4
Left-sided double J ureteral stent mild hydro (Chronic)
- Follow urine culture
Metastatic breast cancer with mets to bone, pelvis, spine then liver 2022 then Brain 06/10/2024 then left kidney December 2024 on current chemotherapy
- Patient initially was diagnosed with invasive ductal carcinoma of the right breast 10/03/2020
- s/p XRT brain November and T spine 2 months ago
- last Chemo (Eribulin) 2 weeks ago via Port left upper chest wall
Metastatic brain CA with history of seizures Dx May 2024
Acute confusion
- Continue Keppra 500 mg p.o. twice daily
- MRI brain pending
- check metabolic workup
Chronic pain due to metastatic breast cancer on chronic oral opiates
- continue oxycodone 5 mg 4 times daily with bowel regimen
Hypothyroidism
- continue Synthroid 150 mcg p.o. daily
Depression
- continue Prozac 20 mg daily
Insomnia
- continue trazodone 50 mg at bedtime
DVT ppx: SCDs
Code: Full
Spoke to her treating Oncologist at [place] Dr. Natalie Casillas ([phone]). Hospice was discussed recently, patient opted for ongoing treatment. Updated Dr. Casillas on current plan of care, she is in agreement.
Anticipated Discharge: > 48 hours
Subjective/Interval History
-
Date of Service: February 17, 2025
patient reports nausea/weakness, fever at home over past few days. Also lightheaded
Denies SOB/Chest pain/Abdominal symptoms of pain/diarrhea/vomiting. No UTI symptoms. No rashes.
Family notes patient is confused
Objective Data
-
Labs:
Laboratory Results
02/17/25
05:35
WBC 1.9 L*
Hgb 8.1 L
Hct 23.9 L
Plt Count 73 L
Sodium 138
Potassium 3.6 D
Chloride 108 H
Carbon Dioxide 26
BUN 10
Creatinine 0.8
Glucose 95
Calcium 8.8
Total Bilirubin 2.2 H
AST 160 H
ALT 57 H
Alkaline Phosphatase 320 H
Vital Signs:
Vital Signs
Temp Pulse Resp BP Pulse Ox
97.9 F 87 21 124/64 96
02/17/25 03:08 02/17/25 09:05 02/17/25 09:05 02/17/25 09:05 02/17/25 09:28
I&O
02/16/25 02/17/25 02/18/25
06:59 06:59 06:59
Intake Total 1400 / 1400
Output Total 350 / 350
Balance 1050 / 1050
Physical Exam
-
General: Comfortable and Appears Chronically Ill
HEENT: Normocephalic, Atraumatic and Other (Chemo-port. C/D/I, no surrounding erythema)
Respiratory: Clear to Auscultation; Negative Wheezes or Rales
Cardiac: Regular Rhythm and S1/S2
GI: Soft and Nontender
Genito-urinary: No Costovertebral Tender
Neuro: AO x 3, No Sensory Deficits and Other (symmetrical 4/5 strength in bilateral LE's)
Psych: Calm and Confused
Data Reviewed
-
Total Time Spent with Patient (in minutes): 47
Labs: Labs Reviewed by me
[2025-02-17] MEDS: KCL 40 MEQ PO (12:05)
[2025-02-17] MEDS: ATIVAN 1 MG PO (12:11)
--- NOTE | 2025-02-17 13:59 | CM ---
Patient with Hx Metastatic breast cancer, Left-sided double J ureteral stent with Dx sepsis, pancytopenia, transaminitis. Brain MRI, L-spine MRI, Abd U/S today. Room air. Receiving IVF, IV Abx. PT recommends HH. OT recommends SNF vs home
w/assist.
Patient unavailable/off unit.
Received phone call from [facility] , fax [phone]); patient is current for PT/OT. Zeina reports patient also receives [facility] for IV hydration.
Met with patient's Neri (cell [phone]);
he confirms that patient will wish to resume [facility] for PT/OT (she just started) and [facility] for IV hydration at discharge.
says patient was functioning fairly well until about a week prior to admission when she started to become confused at times. He is hoping her mental status will improve by discharge.
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 He feels that he has been managing well this far caring for his . He will let CM know if he wants to have Caregiver list for lining up more help at home.
CM Consult: Advanced Directive. Provided form with explanations to give to nurse if completed.
Referral placed for [facility] (fax [phone]) for SN/PT/OT.
Plan home with resumption [facility], with .
--- NOTE | 2025-02-17 16:17 | CON.ID ---
Consultation
-
Date/Time Consultation Requested: 02/17/2025 1041
Date/Time Consultation Performed: 02/17/2025 1550
Requesting Provider: Dr. Breaux
Performing Provider: Dr. Singh
Reason for Consultation: Pancytopenia
Chief Complaint / Past History
History of Present Illness
Rox Bocanegra is a 59-year-old female being evaluated the request of Dr. Breaux regarding pancytopenia and fever. History is obtained from chart review, along with patient interview. Additional history was obtained from the patient's son and
daughter who are at the bedside, and along with the patient's .
The patient has a significant past medical history of widely metastatic breast cancer (to spine, kidney, liver, brain). She has been followed routinely at the [facility]. According to the patient's daughter, she was advised to
consider hospice several months ago, but she elected to pursue additional chemo. She received a new chemo regimen approximately 3 weeks ago (eribulin), and thus far has had 2 doses. Over the past week she has been noted to have increasing
weakness, progressing relatively quickly to increasing difficulty with walking and increased confusion. Several days ago, EMS was called because of her confusion. Her glucose was checked, found to be low and she was given glucagon. At that point
she refused transportation to the hospital. The confusion persisted, and yesterday they spoke with her oncologist who advised admission to the hospital for further workup and she came to [facility] ER.
At admission, she was found to have neutropenia, with an ANC of 600. At this point in time she remains confused and markedly weak. Infectious Diseases asked to comment upon further antibiotic management.
Past History
Additional Past Medical History:
Metastatic breast cancer (spine, kidney, liver, brain)
HTN
DM
Hypothyroidism
Seizures
Additional Past Surgical History:
Ureteral stenting
JENI
Lumpectomy
Allergy History:
vancomycin Adverse Reaction (Verified 02/16/25 20:20)
Vancomycin infusion reaction 02/16/25
Medications Reviewed: Yes
Current Antibiotics:
Zosyn 3.375 gm IV q.6 hours
Vancomycin (dosing per pharmacy)
Social History
Tobacco: Non-Smoker
Alcohol: None
Drug: None
Personal:
Living: With Family
Employment: Employed
Family History
Family History: Not Pertinent
Review of Systems
Vital Signs
Temp Pulse Resp BP Pulse Ox
98.5 F 88 22 107/57 96
02/17/25 15:00 02/17/25 12:00 02/17/25 12:00 02/17/25 12:00 02/17/25 09:28
Physical Exam
Physical Exam
Constitutional: Acutely Ill, Chronically Ill and Non-toxic
Eyes: No Conjunctival Hemorrhage; Negative Sclera Anicteric
Oral: No Thrush and No Ulcers
Cardiovascular: Regular Rate and S1/S2; Negative S3/S4
Pulmonary: Clear; Negative Wheezes, Rales or Rhonchi
Gastrointestinal: Soft, Non Tender, Non Distended and Normal Bowel Sounds
Extremities: Edema; Negative Cyanosis or Erythema
Musculoskeletal: Negative Joint Swelling
Skin: Warm and Dry; Negative Rash or Jaundice
Neurological: Other (Somnolent but arousable.); Negative Meningeal Signs
Psychological: Calm
Lab / Diagnostic Study Results
02/17/25 05:35
02/17/25 05:35
Total Counted 100 02/17/25 05:35
Abs Neuts (Manual) 0.7 10^3/uL (1.4-6.5) L* 02/17/25 05:35
Segmented Neutrophils 37 % (42-75) L 02/17/25 05:35
Band Neutrophils 5 % (0-3) H 02/17/25 05:35
Lymphocytes (Manual) 41 % (20-51) 02/17/25 05:35
Lactic Acid 1.9 mmol/L (0.7-2.0) 02/16/25 15:44
Ur Squamous Epith Cells 3-5 /LPF (Few) 02/16/25 11:28
Microbiology Results
Micro:
02/16/25 11:50 Blood Culture - Preliminary
Blood/Venous No Growth in 24 hours- Final report to follow
02/16/25 11:19 Blood Culture - Preliminary
Blood/Venous No Growth in 24 hours- Final report to follow
02/16/25 11:28 Urine Culture - Preliminary
Urine Sparse growth, too young to be identified. Further results
to follow.
02/16/25 16:35 Blood Culture - Pending
Blood/Venous
02/16/25 11:12 Influenza Types A & B (ARELY) - Final
Nasal Swab Negative for Influenza A & B, NAAT
Negative results must be combined with clinical observations
and patient history.
Nucleic Acid Amplification test (NAAT)performed on the
[employer] platform.
Imaging:
02/17/2025 MRI brain with/without contrast: there is a large number of enhancing intraparenchymal metastasis with involvement of the bilateral cerebral hemispheres, basal ganglia and cerebellum. Some of the metastasis are noted to be hemorrhagic.
No prior imaging of the brain is currently available for direct comparison. Widespread osseous metastatic disease is also noted. Please see full dictation for additional detail.
MRI lumbar spine with/without contrast: there is widespread osseous metastatic disease. No MRI evidence for pathologic compression fracture or high-grade spinal canal stenosis. There is suspected mild degree of leptomeningeal disease in the sacral
spinal canal. Severe left hydronephrosis with a ureteral stent in place. Please see full dictation for additional detail.
02/16/2025 CT chest/abdomen/pelvis: no acute findings in the chest. Cholelithiasis with small volume pericholecystic free fluid noted. Numerous hypodense lesions within the liver which are likely metastasis in the setting of known breast cancer.
Splenomegaly noted. Left-sided double-J ureteral stent with persistent mild left-sided hydronephrosis. Extensive lytic and sclerotic appearance of the bones, likely secondary to widespread osseous metastatic disease. Please see full dictation for
additional detail.
Assessment / Plan
Generalized weakness
Encephalopathy
Abnormal MRI concerning for hemorrhagic metastasis in the brain.
Neutropenia
Metastatic breast cancer (spine, kidney, liver, brain)
HTN
DM
Hypothyroidism
Hx Seizures
Recommendations:
Continue with empiric Zosyn.
Discontinue further vancomycin for now. Will reinitiate should blood cultures indicate growth of gram-positive cocci.
Monitor white count and ANC.
Follow pending blood cultures and urine culture.
Will continue to follow clinically.
Continue with supportive measures.
Care Review
Plan reviewed with: Physician (Hospitalist)
[2025-02-17] MEDS: ROXICODONE PO (17:28)
[2025-02-18] VITALS: BP 108/58
[2025-02-18 02:18] VITALS: BP 128/60
[2025-02-18] MEDS: ZOSYN 50 IV ×4 (02:37→20:56)
[2025-02-18 04:01] VITALS: BP 105/62
[2025-02-18] MEDS: SYNTHROID 150 MCG PO (04:34)
[2025-02-18] MEDS: NSS 1000 IV (04:34)
[2025-02-18 04:55] LABS: Hematocrit 23.8 % (37.0-47.0); Hemoglobin 8.2 g/dL (12.0-16.0); Mean Corp Hgb Conc. 34.5 g/dL (33.0-37.0); Mean Corpuscular Volume 89.8 fL (81.0-99.0); Platelet Count 69 10^3/uL (130-400); Red Cell Dist. Width 17.0 % (11.5-14.5)
[2025-02-18 05:03] LABS: Ammonia 11 umol/L (9-30)
[2025-02-18 05:18] LABS: ALT (SGPT) 51 U/L (0-35); AST (SGOT) 137 U/L (14-36); Albumin 2.8 g/dl (3.5-5.0); Alkaline Phosphatase 302 U/L (38-126); Blood Urea Nitrogen 10 mg/dl (7-17); Calcium 8.8 mg/dl (8.4-10.2); Carbon Dioxide 24 mmol/L (22-30); Chloride 107 mmol/L (98-107); Estimated Creatinine Clearance 77 ml/min; Glucose 86 mg/dl (70-99); Potassium 4.1 mmol/L (3.5-5.1); Sodium 137 mmol/L (135-145); Total Protein 5.1 g/dl (6.3-8.2); eGFR > 60.00
--- NOTE | 2025-02-18 05:46 | PTCARENOTE ---
received patient from previous RN. Patient family at bedside helping with hygiene for patient. Patient disorientated to time, said the year was 1914. Patient can be confused at times. NS running at 80 ml/hr. x2 assist to bedside commode. Assessment
and vital signs as documented. Call moran in reach. No acute events overnight.
[2025-02-18 06:19] LABS: Absolute Neutrophils -Man Diff 1.1 10^3/uL (1.4-6.5); Anisocytosis 2+; Normal RBC Morphology No; Platelets Checked Yes; Total Cells Counted 100
[2025-02-18 06:24] LABS: Folate 6.8 ng/ml (2.76-20); Vitamin B12 776 pg/ml (239-931)
[2025-02-18 08:00] VITALS: BP 105/67
[2025-02-18] MEDS: KEPPRA 500 MG PO ×2 (08:16→20:56)
[2025-02-18] MEDS: VITAMIN B-6 100 MG PO (08:16)
[2025-02-18] MEDS: ROXICODONE 5 MG PO ×4 (08:16→20:56)
[2025-02-18] MEDS: PROZAC 20 MG PO (08:16)
[2025-02-18] MEDS: VITAMIN D3 (cholecalciferol) 25 MCG PO (08:17)
--- NOTE | 2025-02-18 09:56 | CM ---
Patient with Hx Metastatic breast cancer, Left-sided double J ureteral stent with Dx sepsis, pancytopenia, transaminitis. Room air.
Consult: Hospice
Message from Dr Breaux: this patient is for home hospice eval - advanced metastatic breast cancer. Family agreeable from yesterdays conversation - they were ok with service if it serves [place] which Salome confirmed.
Message from Salome: Hospice who will contact patient's .
Plan follow up after seen by Hospice.
--- NOTE | 2025-02-18 10:44 | PTCARENOTE ---
Patient AAOx2, forgetful and confused at times. VSS. Daughter at bedside. Patient making needs known. Will closely monitor.
--- NOTE | 2025-02-18 11:23 | HOSPNOTE ---
Met with family and discussed hospice and the philosophy. The family will make some decisions tomorrow Saturday after all the cultures. The patient remains a full code for now until a final decision is made. If the family chooses hospice it will be
home with hospice. The family will call me tomorrow and we will order equipment and get the patient home on Saturday.
--- NOTE | 2025-02-18 12:57 | PN.CDI ---
CDI
- -
CDI:
Physician Documentation Request
Admit Date: 02/16/25 16:14
Dear Doctor Namita,
Please review the following and provide your response in the progress notes.
Clinical Indicators:
The diagnosis of Vasogenic edema was included in the signed 02/17 Brain MRI
- 02/17 MRI Brain 'Large number of enhancing intraparenchymal metastases...Vasogenic edema about these lesions on the FLAIR sequence'
Please indicate in your progress notes if you are in agreement that the above diagnosis is valid for this patient:
____ - Vasogenic edema is a valid diagnosis (Please include it in your progress notes)
____ - Vasogenic edema is not a valid diagnosis for this patient
____ - Other (please specify)
Use of terms such as suspected, likely, concern for, or probable are acceptable for a diagnosis that is being evaluated, monitored or treated as if it exists and can be coded in the inpatient setting, when documented at the time of discharge.
Thank you,
Joleen Christianson RN
CDI Specialist
Please use your independent medical judgment in providing your response.
--- NOTE | 2025-02-18 13:00 | PN.CDI ---
CDI
- -
CDI:
Physician Documentation Request
Admit Date: 02/16/25 16:14
Dear Doctor Namita,
Please review the following and provide your response in the progress notes.
Clinical Indicators:
- Patient admit for sepsis
- History of breast cancer with metastasis to brain
- 02/17 PN 'Metastatic brain CA...Acute confusion'
- 02/17 ID 'encephalopathy' without specificity
- RN notes 'Patient appears confused, unable to remember which side she had surgery on for her limb restriction'
- 'Patient disorientated to time, said the year was 1914'
- UC positive for Streptococcus species
Please specify the known or suspected type of the documented encephalopathy, source of confusion.
Metabolic
Septic
Toxic metabolic
Other (please specify)
Use of terms such as suspected, likely, concern for, or probable (associated with a specific diagnosis that is being evaluated, monitored, or treated as if it exists) are acceptable and can be coded in the inpatient setting, when documented at the
time of discharge.
Thank you,
Joleen Christianson RN
CDI Specialist
Please use your independent medical judgment in providing your response.
[2025-02-18 13:34] VITALS: BP 115/57
--- NOTE | 2025-02-18 15:03 | W.PN.HOSP.TC ---
Today's Communication/Plan
-
continue Abx follow cultures
Assessment / Plan
Assessment / Plan
Assessment:
Severe sepsis POA (tachycardia, leukopenia, lactic acidosis) - source yet unidentified
Septic encephalopathy
- continue sepsis protocol IVF - lactate improving
- continue Zosyn, day 2
- follow cultures (blood cultures, port culture, urine cultures)
- CT imaging with possible small volume pericholecystic free fluid. F/u US abdomen with no ultrasound evidence for gallbladder wall thickening or pericholecystic edema. The patient has a negative sonographic Johns's sign.
- Infectious disease following
Acute Pancytopenia - suspect malignancy or chemotherapy related
- follow daily CBC
- neutropenic precautions
- s/p 1 unit PRBC
Transaminitis likely secondary to hypotension, possible sepsis, recent chemotherapy, known liver mets from cancer
- CT imaging with possible small volume pericholecystic free fluid. F/u US abdomen with no ultrasound evidence for gallbladder wall thickening or pericholecystic edema. The patient has a negative sonographic Johns's sign. Numerous hypodense lesions
within the liver which are likely metastasis in the setting of known breast cancer
- follow LFTs
Splenomegaly
Acute hypokalemia
- hold HCTZ
- replete K to >4
Left-sided double J ureteral stent mild hydro (Chronic)
- strep species in urine. will d/w ID on true pathogen vs colonizer
Metastatic breast cancer with mets to bone, pelvis, spine then liver 2022 then Brain 06/10/2024 then left kidney December 2024 on current chemotherapy
- Patient initially was diagnosed with invasive ductal carcinoma of the right breast 10/03/2020
- s/p XRT brain May and T spine 2 months ago
- last Chemo (Eribulin) 2 weeks ago via Port left upper chest wall
- hospice consulted
Metastatic brain CA with history of seizures Dx May 2024
Acute confusion
- Continue Keppra 500 mg p.o. twice daily
- MRI brain: Large number of enhancing intraparenchymal metastases with involvement of the bilateral cerebral hemispheres, basal ganglia, and cerebellum. Some of the metastases are noted to be hemorrhagic. Vasogenic edema also seen.
Widespread osseous metastatic disease
Chronic pain due to metastatic breast cancer on chronic oral opiates
- continue oxycodone 5 mg 4 times daily with bowel regimen
Hypothyroidism
- continue Synthroid 150 mcg p.o. daily
Depression
- continue Prozac 20 mg daily
Insomnia
- continue trazodone 50 mg at bedtime
DVT ppx: SCDs
Code: Full
Spoke to her treating Oncologist at [place] Dr. Natalie Casillas ([phone]). hospice recommended. Family deciding.
Anticipated Discharge: 24 - 48 hours
Subjective/Interval History
-
Date of Service: February 18, 2025
less confused per family
no overnight events
Objective Data
-
Labs:
Laboratory Results
02/18/25
04:43
WBC 2.2 L*
Hgb 8.2 L
Hct 23.8 L
Plt Count 69 L
Sodium 137
Potassium 4.1
Chloride 107
Carbon Dioxide 24
BUN 10
Creatinine 0.8
Glucose 86
Calcium 8.8
Total Bilirubin 2.1 H
AST 137 H
ALT 51 H
Alkaline Phosphatase 302 H
Vital Signs:
Vital Signs
Temp Pulse Resp BP Pulse Ox
98.6 F 91 23 115/57 97
02/18/25 15:00 02/18/25 14:00 02/18/25 14:00 02/18/25 13:34 02/18/25 08:00
I&O
02/17/25 02/18/25 02/19/25
06:59 06:59 06:59
Intake Total 1400 / 1400 480 / 480
Output Total 350 / 350 750 / 750
Balance 1050 / 1050 -270 / -270
Physical Exam
-
General: No Apparent Distress
HEENT: Normocephalic
Respiratory: Negative Wheezes
Cardiac: Regular Rhythm and S1/S2
GI: Soft
Neuro: Awake and Alert
Psych: Calm and Confused
Data Reviewed
-
Total Time Spent with Patient (in minutes): 42
Labs: Labs Reviewed by me
[2025-02-18] MEDS: NSS IV (18:35)
[2025-02-18 18:39] VITALS: BP 117/53
[2025-02-19] VITALS (10 sets, daily range): BP systolic 102–124; BP diastolic 53–87
--- NOTE | 2025-02-19 02:13 | PTCARENOTE ---
Patient aao x3 at start of shift, family present at bedside. Patient denies pain throughout shift thus far. Refused repositioning, will continue to encourage repositioning for pressure relief and comfort. Call moran within reach, will continue to
monitor patient closely.
[2025-02-19] MEDS: ZOSYN 50 IV ×2 (02:18→09:16)
[2025-02-19] MEDS: SYNTHROID 150 MCG PO (04:02)
[2025-02-19 04:07] LABS: Hematocrit 24.2 % (37.0-47.0); Hemoglobin 8.1 g/dL (12.0-16.0); Mean Corp Hgb Conc. 33.5 g/dL (33.0-37.0); Mean Corpuscular Volume 90.3 fL (81.0-99.0); Nucleated Red Blood Cells % 2.1 %; Platelet Count 73 10^3/uL (130-400); Red Cell Dist. Width 16.9 % (11.5-14.5)
[2025-02-19 04:33] LABS: ALT (SGPT) 48 U/L (0-35); AST (SGOT) 128 U/L (14-36); Albumin 2.8 g/dl (3.5-5.0); Alkaline Phosphatase 309 U/L (38-126); Blood Urea Nitrogen 10 mg/dl (7-17); Calcium 9.2 mg/dl (8.4-10.2); Carbon Dioxide 24 mmol/L (22-30); Chloride 107 mmol/L (98-107); Estimated Creatinine Clearance 69 ml/min; Glucose 89 mg/dl (70-99); Potassium 3.5 mmol/L (3.5-5.1); Sodium 137 mmol/L (135-145); Total Protein 5.2 g/dl (6.3-8.2); eGFR > 60.00
[2025-02-19] MEDS: PROZAC 20 MG PO (09:16)
[2025-02-19] MEDS: ROXICODONE 5 MG PO ×4 (09:16→21:23)
[2025-02-19] MEDS: VITAMIN B-6 100 MG PO (09:17)
[2025-02-19] MEDS: KEPPRA 500 MG PO ×2 (09:17→19:51)
[2025-02-19] MEDS: VITAMIN D3 (cholecalciferol) 25 MCG PO (09:17)
--- NOTE | 2025-02-19 09:18 | W.PN.ID1 ---
Date of Service
Date of Service: February 19, 2025
Today's Communication
Narrow to cephalexin. See below�
Assessment / Plan
Generalized weakness
Encephalopathy
Abnormal MRI concerning for hemorrhagic metastasis in the brain.
Neutropenia; improved
Metastatic breast cancer (spine, kidney, liver, brain)
HTN
DM
Hypothyroidism
Hx Seizures
Recommendations:
Blood cultures negative. Urine culture only with strep species.
Narrow antibiotics to cephalexin in the treatment of presumed bacteriuria. Complete a 10-day course.
Await family decision regarding possible transition to hospice.
Little more to offer from a Infectious Disease standpoint.
Will see again at your request.
����������������������������������������������������������
Chief Complaint
-: Other (Leukopenia)
Subjective / Review of Systems
Patient seen and examined. Reports feeling somewhat better today.
Review of Systems: No Fever
Vital Signs / Physical Exam
Vital Signs
Vital Signs
Temp Pulse Resp BP Pulse Ox
98.1 F 87 26 117/59 94
02/19/25 06:37 02/19/25 06:32 02/19/25 06:32 02/19/25 06:32 02/19/25 04:15
Physical Exam
Constitutional: Comfortable, Chronically Ill and Non-toxic
Eyes: No Conjunctival Hemorrhage and Sclera Anicteric
Cardiovascular: S1/S2; Negative S3/S4
Pulmonary: Clear and Non Labored
Gastrointestinal: Soft, Non Tender and Non Distended
Extremities: Edema; Negative Cyanosis or Erythema
Skin: Warm and Dry; Negative Rash or Jaundice
Neurological: Awake and Alert
Psychological: Calm
Lines: Port (Accessed; no tenderness or erythema.)
Objective Data
Lab Data
Lab Results
02/19/25 03:56
02/19/25 03:56
Estimated Creat Clear 69 ml/min 02/19/25 03:56
Lactic Acid 1.9 mmol/L (0.7-2.0) 02/16/25 15:44
Total Bilirubin 1.8 mg/dl (0.2-1.3) H 02/19/25 03:56
AST 128 U/L (14-36) H 02/19/25 03:56
ALT 48 U/L (0-35) H 02/19/25 03:56
Alkaline Phosphatase 309 U/L (38-126) H 02/19/25 03:56
Most recent labs reviewed.
Micro Results:
02/16/25 16:35 Blood Culture - Preliminary
Blood/Venous No Growth in 48 hours- Final report to follow
02/16/25 11:50 Blood Culture - Preliminary
Blood/Venous No Growth in 48 hours- Final report to follow
02/16/25 11:19 Blood Culture - Preliminary
Blood/Venous No Growth in 48 hours- Final report to follow
02/16/25 11:28 Urine Culture - Final
Urine Streptococcus species
02/16/25 11:12 Influenza Types A & B (ARELY) - Final
Nasal Swab Negative for Influenza A & B, NAAT
Negative results must be combined with clinical observations
and patient history.
Nucleic Acid Amplification test (NAAT)performed on the
[employer] platform.
Imaging:
02/17/2025 MRI brain with/without contrast: there is a large number of enhancing intraparenchymal metastasis with involvement of the bilateral cerebral hemispheres, basal ganglia and cerebellum. Some of the metastasis are noted to be hemorrhagic.
No prior imaging of the brain is currently available for direct comparison. Widespread osseous metastatic disease is also noted. Please see full dictation for additional detail.
MRI lumbar spine with/without contrast: there is widespread osseous metastatic disease. No MRI evidence for pathologic compression fracture or high-grade spinal canal stenosis. There is suspected mild degree of leptomeningeal disease in the sacral
spinal canal. Severe left hydronephrosis with a ureteral stent in place. Please see full dictation for additional detail.
02/16/2025 CT chest/abdomen/pelvis: no acute findings in the chest. Cholelithiasis with small volume pericholecystic free fluid noted. Numerous hypodense lesions within the liver which are likely metastasis in the setting of known breast cancer.
Splenomegaly noted. Left-sided double-J ureteral stent with persistent mild left-sided hydronephrosis. Extensive lytic and sclerotic appearance of the bones, likely secondary to widespread osseous metastatic disease. Please see full dictation for
additional detail.
--- NOTE | 2025-02-19 10:51 | PTOTSP ---
Reviewed chart and s/w RN. community relations liaison in with pt and family. Pt to go home on hospice tomorrow. PT will sign off.
--- NOTE | 2025-02-19 12:02 | HOSPNOTE ---
Spoke with family and they are in agreement to use [facility] (main) the lithography contact worker is Tess [phone], she will order all equipment and the plan is to discharge tomorrow. Family in agreement with this plan. Attending and CM aware.
--- NOTE | 2025-02-19 12:05 | PTCARENOTE ---
Patient with no complaints, reports comfortable. Family at bedside. VSS. Plan for home hospice tomorrow. Will continue to closely monitor.
--- NOTE | 2025-02-19 12:47 | CM ---
Patient with Hx Metastatic breast cancer with Port with Dx sepsis, pancytopenia. Room air. Receiving PO Kefflex, Oxycodone DID.
Per nurse; patient is taking small amounts of PO and is taking her oral meds. She is mostly on bedrest but able to get OOB to commode.
Spoke with Tess Acosta, [facility] fax [phone]);
they have already received a referral and have accepted the patient for hospice. Daughter will be sent consents electronically today and they can begin home hospice services tomorrow. Hospital bed and commode were ordered for delivery to home
tomorrow morning. Comfort kit will arrive to patient Saturday, she is asking our MD to please order 2 days worth of PO Ativan, and send script for PO Abx to patient's pharmacy ---> message to Dr Breaux.
Attempted to meet with patient who was busy receiving care.
Met with patient's daughter Jaja, and son; they agree with d/c tomorrow to home with [facility] and agree to 1pm ambulance transport. Home address confirmed. Jaja is helping her father with patient's arrangements as he needs help
coping with grief at this time.
Ambulance requested with community worker for 1pm tomorrow.
[facility] DNR on chart for MD signature.
Plan home tomorrow with [facility] with 1pm ambulance transport.
[2025-02-19] MEDS: KEFLEX 500 MG PO ×3 (13:22→21:23)
--- NOTE | 2025-02-19 14:09 | W.PN.HOSP.TC ---
Today's Communication/Plan
-
transition to oral Keflex
home hospice transition tomorrow
Assessment / Plan
Assessment / Plan
Assessment:
Severe sepsis POA (tachycardia, leukopenia, lactic acidosis) - source possible strep in urine
Septic encephalopathy
- s/p sepsis protocol IVF
- dc on Keflex 500mg QID x 8 days further
- other cultures negative
- CT imaging with possible small volume pericholecystic free fluid. F/u US abdomen with no ultrasound evidence for gallbladder wall thickening or pericholecystic edema. The patient has a negative sonographic Johns's sign.
- ID signed off
Acute Pancytopenia - suspect malignancy or chemotherapy related
- follow daily CBC
- neutropenic precautions
- s/p 1 unit PRBC
Transaminitis likely secondary to hypotension, possible sepsis, recent chemotherapy, known liver mets from cancer
- CT imaging with possible small volume pericholecystic free fluid. F/u US abdomen with no ultrasound evidence for gallbladder wall thickening or pericholecystic edema. The patient has a negative sonographic Johns's sign. Numerous hypodense lesions
within the liver which are likely metastasis in the setting of known breast cancer
- follow LFTs
Splenomegaly
Acute hypokalemia
- hold HCTZ
- replete K to >4
Left-sided double J ureteral stent mild hydro (Chronic)
- strep species in urine - Keflex as above
Metastatic breast cancer with mets to bone, pelvis, spine then liver 2022 then Brain 06/10/2024 then left kidney December 2024 on current chemotherapy
- Patient initially was diagnosed with invasive ductal carcinoma of the right breast 10/03/2020
- s/p XRT brain May and T spine 2 months ago
- last Chemo (Eribulin) 2 weeks ago via Port left upper chest wall
- hospice consulted; family agreeable
Metastatic brain CA with history of seizures Dx May 2024
Acute confusion
- Continue Keppra 500 mg p.o. twice daily
- MRI brain: Large number of enhancing intraparenchymal metastases with involvement of the bilateral cerebral hemispheres, basal ganglia, and cerebellum. Some of the metastases are noted to be hemorrhagic. Vasogenic edema also seen.
Widespread osseous metastatic disease
Chronic pain due to metastatic breast cancer on chronic oral opiates
- continue oxycodone 5 mg 4 times daily with bowel regimen
Hypothyroidism
- continue Synthroid 150 mcg p.o. daily
Depression
- continue Prozac 20 mg daily
Insomnia
- continue trazodone 50 mg at bedtime
DVT ppx: SCDs
Code: Full
Spoke to her treating Oncologist at [facility] Dr. Natalie Casillas ([phone]). hospice recommended. family agreeable; transport for 8/2 PM to home.
Anticipated Discharge: Within 24 hours
Subjective/Interval History
-
Date of Service: February 19, 2025
more awake, more alert per family
denies any new complaints
Objective Data
-
Labs:
Laboratory Results
02/19/25
03:56
WBC 2.4 L*
Hgb 8.1 L
Hct 24.2 L
Plt Count 73 L
Sodium 137
Potassium 3.5
Chloride 107
Carbon Dioxide 24
BUN 10
Creatinine 0.9
Glucose 89
Calcium 9.2
Total Bilirubin 1.8 H
AST 128 H
ALT 48 H
Alkaline Phosphatase 309 H
Vital Signs:
Vital Signs
Temp Pulse Resp BP Pulse Ox
98.2 F 87 26 115/60 97
02/19/25 11:05 02/19/25 13:24 02/19/25 13:24 02/19/25 13:24 02/19/25 12:00
I&O
07/31/25 08/01/25 08/02/25
06:59 06:59 06:59
Intake Total 480 / 480
Output Total 750 / 750
Balance -270 / -270
Physical Exam
-
General: No Apparent Distress
HEENT: Normocephalic and Atraumatic
Respiratory: Negative Wheezes
Cardiac: Regular Rhythm and S1/S2
GI: Soft
Musculoskeletal: No Edema
Neuro: AO x 3
Psych: Calm
Data Reviewed
-
Total Time Spent with Patient (in minutes): 41
Labs: Labs Reviewed by me
--- NOTE | 2025-02-19 21:43 | PTCARENOTE ---
Patient aao x2-3 at start of shift, patient more alert than previous evening, affect pleasant. Family at bedside at that time. Patient denies pain. Medications reviewed and administered as ordered. Lungs cta throughout, pox 95% ra, no sob or crowe
noted. NSR on the monitor. Reviewed plan for discharge home on hospice tomorrow, patient verbalized understanding. Call moran within reach, will continue to monitor patient closely.
[2025-02-20] VITALS: BP 111/59
[2025-02-20 02:00] VITALS: BP 113/56
[2025-02-20] MEDS: SYNTHROID 150 MCG PO (04:15)
[2025-02-20 04:18] VITALS: BP 123/100
[2025-02-20 07:28] VITALS: BP 123/51
[2025-02-20 08:00] VITALS: BP 106/55
[2025-02-20] MEDS: KEFLEX 500 MG PO ×2 (08:47→12:33)
[2025-02-20] MEDS: PROZAC 20 MG PO (08:47)
[2025-02-20] MEDS: KEPPRA 500 MG PO (08:47)
[2025-02-20] MEDS: VITAMIN D3 (cholecalciferol) 25 MCG PO (08:47)
[2025-02-20] MEDS: ROXICODONE 5 MG PO ×2 (08:47→12:33)
[2025-02-20] MEDS: VITAMIN B-6 100 MG PO (08:47)
--- NOTE | 2025-02-20 09:59 | W.PN.HOSP.TC ---
Today's Communication/Plan
-
dc to home hospice
Assessment / Plan
Assessment / Plan
Assessment:
Severe sepsis POA (tachycardia, leukopenia, lactic acidosis) - source possible strep in urine
Septic encephalopathy
- s/p sepsis protocol IVF
- dc on Keflex 500mg QID x 7 days further
- other cultures negative
- CT imaging with possible small volume pericholecystic free fluid. F/u US abdomen with no ultrasound evidence for gallbladder wall thickening or pericholecystic edema. The patient has a negative sonographic Johns's sign.
- ID signed off
Acute Pancytopenia - suspect malignancy or chemotherapy related
- follow daily CBC
- neutropenic precautions
- s/p 1 unit PRBC
Transaminitis likely secondary to hypotension, possible sepsis, recent chemotherapy, known liver mets from cancer
- CT imaging with possible small volume pericholecystic free fluid. F/u US abdomen with no ultrasound evidence for gallbladder wall thickening or pericholecystic edema. The patient has a negative sonographic Johns's sign. Numerous hypodense lesions
within the liver which are likely metastasis in the setting of known breast cancer
- follow LFTs
Splenomegaly
Acute hypokalemia
- resume HCTZ at discharge
- replete K to >4
Left-sided double J ureteral stent mild hydro (Chronic)
- strep species in urine - Keflex as above
Metastatic breast cancer with mets to bone, pelvis, spine then liver 2022 then Brain 06/10/2024 then left kidney December 2024 on current chemotherapy
- Patient initially was diagnosed with invasive ductal carcinoma of the right breast 10/03/2020
- s/p XRT brain May and T spine 2 months ago
- last Chemo (Eribulin) 2 weeks ago via [place] left upper chest wall
- hospice consulted; family agreeable
Metastatic brain CA with history of seizures Dx May 2024
Acute confusion
- Continue Keppra 500 mg p.o. twice daily
- MRI brain: Large number of enhancing intraparenchymal metastases with involvement of the bilateral cerebral hemispheres, basal ganglia, and cerebellum. Some of the metastases are noted to be hemorrhagic. Vasogenic edema also seen.
Widespread osseous metastatic disease
Chronic pain due to metastatic breast cancer on chronic oral opiates
- continue oxycodone 5 mg 4 times daily with bowel regimen
Hypothyroidism
- continue Synthroid 150 mcg p.o. daily
Depression
- continue Prozac 20 mg daily
Insomnia
- continue trazodone 50 mg at bedtime
DVT ppx: SCDs
Code: DNR
Spoke to her treating Oncologist at [facility] Dr. Natalie Casillas ([phone]). hospice recommended. family agreeable; transport today to home.
More than 30 minutes spent in discharge including
Final examination of the patient
Summarizing hospital stay
Instructions for continuing care to all relevant caregivers
Preparation of discharge records, prescriptions, and referral forms
Total time spent (in minutes): 41
Anticipated Discharge: Today
Subjective/Interval History
-
Date of Service: February 20, 2025
no overnight events
for home hospice discharge today
Objective Data
-
Vital Signs:
Vital Signs
Temp Pulse Resp BP Pulse Ox
98.7 F 88 27 123/100 96
02/20/25 07:16 02/20/25 04:18 02/20/25 04:18 02/20/25 04:18 02/20/25 04:39
I&O
02/19/25 02/20/25 02/21/25
06:59 06:59 06:59
Output Total 350 / 350
Balance -350 / -350
Physical Exam
-
General: No Apparent Distress
HEENT: Normocephalic
Respiratory: Negative Wheezes
Cardiac: Regular Rhythm and S1/S2
GI: Soft
Neuro: Awake
Psych: Calm
Data Reviewed
-
Total Time Spent with Patient (in minutes): 41
Labs: Labs Reviewed by me
--- NOTE | 2025-02-20 10:00 | W.DS.TRANS ---
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
-
Discharge Instructions:
Discharge Diagnosis/Procedures metastatic breast cancer, UTI/sepsis
Diet Regular,As tolerated
Activity No restrictions,As tolerated
Driving Restrictions No driving
Bathing Restrictions None
Other Services Hospice
Instructions:
Stand-Alone Forms:
Changes to Home Medications: No
Discharge Medications:
DC Medications w/original date entered in [employer]
ascorbic acid (vitamin C) 500 mg chewable tablet (Vitamin C) 500 mg PO DAILY Supplement 02/16/25
cholecalciferol (vitamin D3) 25 mcg (1,000 unit) tablet (Vitamin D3) 25 mcg PO DAILY Supplement 02/16/25
fluoxetine 20 mg capsule (Prozac) 20 mg PO DAILY Mental Health/Anxiety 02/16/25
hydrochlorothiazide 12.5 mg tablet 12.5 mg PO DAILY Fluid Retention/Swelling 02/16/25
levetiracetam 500 mg tablet 500 mg PO BID Seizures 02/16/25
levothyroxine 150 mcg tablet (Synthroid) 150 mcg PO DAILY Thyroid 02/16/25
pyridoxine (vitamin B6) 100 mg tablet 100 mg PO DAILY Supplement 02/16/25
trazodone 50 mg tablet 50 mg PO HSPRN PRN sleep 02/16/25
acetaminophen 325 mg tablet 650 mg (2 x 325 mg) PO Q4HPRN PRN mild pain/GANNON/temp> 100.4F #100 tabs 02/19/25
cephalexin 500 mg capsule 500 mg PO QID #28 caps 02/19/25
lorazepam 1 mg tablet (Ativan) 1 mg PO BID PRN agitation/anxiety #10 tabs 02/19/25
oxycodone 5 mg tablet 5 mg PO QID Pain #20 tabs 02/19/25
Home Medication Changes
Pending Results: No
Total time spent discharging patient (in min): 41
[2025-02-20 11:20] VITALS: BP 114/76
--- NOTE | 2025-02-20 14:09 | PTCARENOTE ---
pt discharged home via ambulance stretcher. [facility] to follow. instructions reviewed with daughter Jaja. pts sq port deaccessed prior to D/C
== END 2025-02-20 13:50 | disposition hospice, home (50) | DRG 808 ==
LOC: IMU 16:14
PROVIDERS: Clinical Nurse Specialist Family Health; Nurse Practitioner; ADMITTING PHYSICIAN Hospitalist; ATTENDING PHYSICIAN Internal Medicine; EMERGENCY PHYSICIAN Emergency Medicine; FAMILY PHYSICIAN Family Medicine; OTHER PHYSICIAN Internal Medicine Infectious Disease
PROC: 30243N1 Transfusion of Nonautologous Red Blood Cells into Central Vein, Percutaneous Approach (ICD-10-PCS; 2025-02-16)
DX: D61.810 Antineoplastic chemotherapy induced pancytopenia (principal); A40.9 Streptococcal sepsis, unspecified; G93.41 Metabolic encephalopathy; G93.6 Cerebral edema; R65.20 Severe sepsis without septic shock; N39.0 Urinary tract infection, site not specified; C79.02 Secondary malignant neoplasm of left kidney and renal pelvis; C79.31 Secondary malignant neoplasm of brain; C79.51 Secondary malignant neoplasm of bone; C78.7 Secondary malignant neoplasm of liver and intrahepatic bile duct; E87.20 Acidosis, unspecified; N13.30 Unspecified hydronephrosis; Z66 Do not resuscitate; Z51.5 Encounter for palliative care; I10 Essential (primary) hypertension; E03.9 Hypothyroidism, unspecified; E11.9 Type 2 diabetes mellitus without complications; E87.6 Hypokalemia; C50.911 Malignant neoplasm of unspecified site of right female breast; R56.9 Unspecified convulsions; T45.1X5A Adverse effect of antineoplastic and immunosuppressive drugs, initial encounter; G89.3 Neoplasm related pain (acute) (chronic); D70.9 Neutropenia, unspecified; F32.A Depression, unspecified; G47.00 Insomnia, unspecified; R16.1 Splenomegaly, not elsewhere classified; Z96.0 Presence of urogenital implants; Z11.52 Encounter for screening for COVID-19; Z90.710 Acquired absence of both cervix and uterus; I95.9 Hypotension, unspecified; R74.01 Elevation of levels of liver transaminase levels; Z79.899 Other long term (current) drug therapy; Z79.891 Long term (current) use of opiate analgesic; Z79.890 Hormone replacement therapy
CPT/HCPCS: 51701; 70553; 71260; 72158; 74177; 76700; 80053; 81003; 81015; 82140; 82607; 82746; 83605; 83735; 84439; 84443; 85025; 86850; 86900; 86901; 86920; 87040; 87077; 87086; 87502; 87811; 93005; 96361; 96365; 96375; 97163; 97167; 97530; 99285; A9575; P9016; Q9967